=== PATIENT | male | born 1945 | race African-American/Black ===

== ENCOUNTER 2022-02-27 02:38 | Inpatient (IN) | payer MEDICARE ==
[2022-02-27] MEDS ORDERED: Guaifenesin DM 100-10/5 ML UDCUP PO PRN (03:59)
[2022-02-27] MEDS ORDERED: Calcium Carbonate 500 MG ChewTAB PO PRN (03:59)
[2022-02-27] MEDS ORDERED: Senokot S 8.6-50 MG TAB PO PRN (03:59)
[2022-02-27 04:37] VITALS: BMI 16.2
[2022-02-27] MEDS ORDERED: Potassium Chloride 20 MEQ TAB PO SCH (05:00)
[2022-02-27] MEDS: Lactated Ringer's 1,000 ML IV SCH ×2 (06:34→18:15)
[2022-02-27] MEDS: Carvedilol 6.25 MG TAB PO SCH ×2 (10:08→18:24)
[2022-02-27] MEDS: Zinc Gluconate 50 MG TAB PO SCH (10:08)
[2022-02-27] MEDS: Aspirin 81 mg Enteric Coated Tablet PO SCH (10:08)
[2022-02-27 11:08] LABS: Anion Gap 12 mmol/L (10-20); BUN (Urea Nitrogen) 20 mg/dL (8.4-25.7); Calc. Creatinine Clearance 65 mL/min (70-130); Calcium 8.5 mg/dL (7.8-10.44); Carbon Dioxide 22 mmol/L (23-31); Chloride 109 mmol/L (98-107); Estimated GFR 97; Glucose 134 mg/dL (83-110); Magnesium 1.8 mg/dL (1.6-2.6); Potassium 3.7 mmol/L (3.5-5.1); Sodium 139 mmol/L (136-145)
[2022-02-27 14:49] LABS: Bilirubin Neg (Negative); Blood, Urine 50 (Negative); Clarity Slightly Cloudy (Clear); Glucose, Urine (Dipstick) Normal (Negative); Ketone, Urine Negative (Negative); Leukocyte 25 (Negative); Nitrite Negative (Negative); Protein, Urine (Dipstick) 30 mg/dl (Neg-Trace)
[2022-02-27 14:56] LABS: Bacteria/HPF 3+ HPF (None Seen); RBC/HPF 0-3 HPF (0-3); Squamous Epithelial 0-3 HPF (0-3)
[2022-02-27] MEDS ORDERED: Electrolyte Replacement Protocol 1 EACH FS SCH (15:30)
[2022-02-27] MEDS ORDERED: Magnesium 2 GM/50 ML(in water) 2 GM in Premix Bag 1 BAG IVPB SCH (16:00)
[2022-02-27 16:27] LABS: Phosphorus 1.5 mg/dL (2.3-4.7)
[2022-02-27] MEDS: PHOS-NAK 1 PKT PACK PO SCH ×2 (18:25→21:50)
[2022-02-27] MEDS: Rosuvastatin 10 MG TAB PO SCH (21:50)
[2022-02-28] MEDS: PHOS-NAK 1 PKT PACK PO SCH ×3 (03:27→20:15)
[2022-02-28] MEDS: Acetaminophen 325 MG TAB PO PRN ×2 (03:44→17:09)
[2022-02-28 06:34] LABS: ALT (SGPT) 30 U/L (8-55); AST (SGOT) 43 U/L (5-34); Albumin 2.4 g/dL (3.4-4.8); Alkaline Phosphatase 76 U/L (40-110); Anion Gap 11 mmol/L (10-20); BUN (Urea Nitrogen) 18 mg/dL (8.4-25.7); Bilirubin, Total 0.9 mg/dL (0.2-1.2); Calc. Creatinine Clearance 67 mL/min (70-130); Calcium 8.3 mg/dL (7.8-10.44); Carbon Dioxide 23 mmol/L (23-31); Chloride 107 mmol/L (98-107); Estimated GFR 98; Glucose 126 mg/dL (83-110); Magnesium 2.1 mg/dL (1.6-2.6); Potassium 3.9 mmol/L (3.5-5.1); Protein, Total 5.4 g/dL (5.8-8.1); Sodium 137 mmol/L (136-145)
[2022-02-28 07:08] LABS: Phosphorus 2.2 mg/dL (2.3-4.7)
[2022-02-28] MEDS: Carvedilol 6.25 MG TAB PO SCH ×2 (10:19→16:44)
[2022-02-28] MEDS: Zinc Gluconate 50 MG TAB PO SCH (10:19)
[2022-02-28] MEDS: Aspirin 81 mg Enteric Coated Tablet PO SCH (10:19)
[2022-02-28] MEDS: Lactated Ringer's 1,000 ML IV SCH (13:00)
[2022-02-28] MEDS: Rosuvastatin 10 MG TAB PO SCH (20:15)
[2022-03-01] MEDS: Lactated Ringer's 1,000 ML IV SCH (04:02)
[2022-03-01] MEDS: PHOS-NAK 1 PKT PACK PO SCH (08:11)
[2022-03-01] MEDS: Carvedilol 6.25 MG TAB PO SCH (08:11)
[2022-03-01] MEDS: Aspirin 81 mg Enteric Coated Tablet PO SCH (08:12)
[2022-03-01] MEDS: Zinc Gluconate 50 MG TAB PO SCH (08:12)
[2022-03-01] MEDS ORDERED: Morphine 4 MG/ML VIAL SLOW IVP PRN (11:56)
[2022-03-01 12:35] VITALS: BP 160/57; TEMP 98
== END 2022-03-01 15:26 | disposition short-term general hospital (02) | DRG 299 ==
LOC: INTOOBSV 02:38 → CSHTELE 02:38 → OBSVTOIN 03-01 08:48
PROVIDERS: ADMIT Student in an Organized Health Care Education/Training Program; ATTEND Internal Medicine
PROC: 8E0ZXY6 Isolation (ICD-10-PCS; principal; 2022-03-01)
DX: E11.52 Type 2 diabetes mellitus with diabetic peripheral angiopathy with gangrene (principal); U07.1 COVID-19; G93.40 Encephalopathy, unspecified; I69.351 Hemiplegia and hemiparesis following cerebral infarction affecting right dominant side; E46 Unspecified protein-calorie malnutrition; Z68.1 Body mass index [BMI] 19.9 or less, adult; L89.159 Pressure ulcer of sacral region, unspecified stage; Z51.5 Encounter for palliative care; F03.90 Unspecified dementia, unspecified severity, without behavioral disturbance, psychotic disturbance, mood disturbance, and anxiety; E87.6 Hypokalemia; I11.0 Hypertensive heart disease with heart failure; I50.9 Heart failure, unspecified; D63.8 Anemia in other chronic diseases classified elsewhere; C61 Malignant neoplasm of prostate; R62.7 Adult failure to thrive; N40.0 Benign prostatic hyperplasia without lower urinary tract symptoms; E86.0 Dehydration; E11.65 Type 2 diabetes mellitus with hyperglycemia; L89.899 Pressure ulcer of other site, unspecified stage; R53.1 Weakness; E83.39 Other disorders of phosphorus metabolism; Z95.1 Presence of aortocoronary bypass graft; Z74.01 Bed confinement status; Z79.82 Long term (current) use of aspirin; Z79.899 Other long term (current) drug therapy
CPT/HCPCS: 36415; 71045; 80048; 80053; 81001; 83735; 84100; 84443; 93970; 96372; 97139; G0378; J1650; J3475; J7120